=== PATIENT | male | born 1950 | race Caucasian/White ===

== ENCOUNTER → 2024-06-08 08:17 | Outpatient (REF) | payer OTHER, SELFPAY | LOC: HWRAD 08:17 | PROVIDERS: ATTENDING PHYSICIAN Family Medicine | DX: R10.12 Left upper quadrant pain (principal); K21.9 Gastro-esophageal reflux disease without esophagitis | CPT/HCPCS: 71046; 76700 ==

== ENCOUNTER → 2025-09-19 13:35 | Outpatient (REF) | payer OTHER, SELFPAY | LOC: REG 13:35 | PROVIDERS: ATTENDING PHYSICIAN Family Medicine | DX: R07.9 Chest pain, unspecified (principal) | CPT/HCPCS: 71046 ==